=== PATIENT | female | born 1990 | race Two or more races ===

== ENCOUNTER 2023-02-26 05:26 | Emergency (ER) | payer MEDICAID ==
[~2023-02-26] VITALS: Ht 167.6 cm; Wt 72.4 kg
[2023-02-26 05:46] VITALS: BP 118/77; PULSE 64; RESP 15; O2SAT 100
[2023-02-26 07:02] LABS: Urine Bacteria NONE SEEN /hpf (None Seen); Urine Blood 2+ /uL (Negative); Urine Clarity Clear (Clear); Urine Color Yellow (Yellow); Urine Protein, UAD Negative (Negative); Urine Specific Gravity 1.024 (1.001-1.035); Urine Urobilinogen Normal (Negative); Urine WBC 1 /hpf (0 - 5)
[2023-02-26 07:11] LABS: Alanine Aminotransferase 26 U/L (7-40); Albumin 4.4 g/dL (3.2-4.8); Alkaline Phosphatase 51 U/L (46-116); Anion Gap 6 (5-15); Aspartate Aminotransferase 17 U/L (13-40); BUN/Creatinine Ratio 19.5 (10.0-20.0); Blood Urea Nitrogen 15 mg/dL (9-23); Calcium 8.9 mg/dL (8.5-10.1); Carbon Dioxide 25 mmol/L (20-30); Chloride 106 mmol/L (98-107); Glucose 88 mg/dL (74-106); Sodium 137 mmol/L (136-145)
[2023-02-26 07:12] LABS: Bilirubin, Total 0.4 mg/dL (0.2-1.0); Total Protein 7.3 g/dL (5.7-8.2)
[2023-02-26 07:13] LABS: Basophils # (auto) 0 10 ^3/uL (0-0.2); Basophils % (auto) 0.9 % (0.0-2.0); Eosinophils # (auto) 0.1 10 ^3/uL (0-0.8); Hematocrit 35.9 % (36.0-46.0); Hemoglobin 12.4 g/dL (12.2-16.2); Lymphocytes # (auto) 1.2 10 ^3/uL (0.4-5.4); Mean Corpuscular Hemoglobin 31.5 pg (28.0-32.0); Mean Corpuscular Hgb Conc. 34.4 g/dL (32.0-36.0); Mean Corpuscular Volume 91.5 fL (80.0-100.0); Monocytes # (auto) 0.4 10 ^3/uL (0-1.3); Monocytes % (auto) 8.9 % (0.0-12.0); Neutrophils # (auto) 2.6 10 ^3/uL (1.6-8.6); Neutrophils % (auto) 61.2 % (37.0-80.0); Nucleated Red Blood Cells % 0.2 %; Red Blood Cells 3.92 10^6/uL (4.0-5.20); Red Cell Distribution Width 12.4 % (11.8-14.3); White Blood Cell 4.3 10^3/uL (4.4-10.8)
[2023-02-26] MEDS ORDERED: FOLIC ACID 1 MG TAB PO ONE (07:45)
== END 2023-02-26 14:47 | disposition left against medical advice (07) ==
LOC: ER 05:26
DX: O20.9 Hemorrhage in early pregnancy, unspecified (principal); R10.2 Pelvic and perineal pain; Z3A.01 Less than 8 weeks gestation of pregnancy; Z88.0 Allergy status to penicillin; Z88.2 Allergy status to sulfonamides
CPT/HCPCS: 36415; 76801; 76817; 80053; 81001; 84702; 85025

== ENCOUNTER → 2023-03-22 | Outpatient (CLI) | payer MEDICAID | END | disposition home or self-care (01) | LOC: LAB 09:41 | PROVIDERS: ATTEND Obstetrics & Gynecology | DX: Z34.80 Encounter for supervision of other normal pregnancy, unspecified trimester (principal); R79.89 Other specified abnormal findings of blood chemistry; Z3A.00 Weeks of gestation of pregnancy not specified | CPT/HCPCS: 36415; 81025; 84702 ==

== ENCOUNTER → 2023-03-30 | Outpatient (CLI) | payer MEDICAID | END | disposition home or self-care (01) | LOC: LAB 11:17 | PROVIDERS: ATTEND Obstetrics & Gynecology | DX: Z34.80 Encounter for supervision of other normal pregnancy, unspecified trimester (principal); Z3A.00 Weeks of gestation of pregnancy not specified | CPT/HCPCS: 36415; 81025; 84702 ==

== ENCOUNTER → 2023-04-05 | Outpatient (CLI) | payer MEDICAID | END | disposition home or self-care (01) | LOC: LAB 08:23 | PROVIDERS: ATTEND Obstetrics & Gynecology | DX: Z34.80 Encounter for supervision of other normal pregnancy, unspecified trimester (principal); Z3A.00 Weeks of gestation of pregnancy not specified | CPT/HCPCS: 36415; 81025; 84702 ==

== ENCOUNTER → 2023-04-12 | Outpatient (CLI) | payer MEDICAID | END | disposition home or self-care (01) | LOC: LAB 12:07 | PROVIDERS: ATTEND Obstetrics & Gynecology | DX: Z34.80 Encounter for supervision of other normal pregnancy, unspecified trimester (principal); Z3A.00 Weeks of gestation of pregnancy not specified | CPT/HCPCS: 36415; 81025; 84702 ==

== ENCOUNTER 2023-04-15 12:19 | Emergency (ER) | payer MEDICAID ==
[~2023-04-15] VITALS: Ht 170.2 cm; Wt 73.9 kg
[2023-04-15 13:16] LABS: Basophils # (auto) 0 10 ^3/uL (0-0.2); Eosinophils # (auto) 0.1 10 ^3/uL (0-0.8); Eosinophils % (auto) 1.9 % (0.0-7.0); Hematocrit 36.9 % (36.0-46.0); Hemoglobin 12.7 g/dL (12.2-16.2); Lymphocytes # (auto) 1.9 10 ^3/uL (0.4-5.4); Lymphocytes % (auto) 38.5 % (10.0-50.0); Mean Corpuscular Hemoglobin 31.4 pg (28.0-32.0); Mean Corpuscular Hgb Conc. 34.5 g/dL (32.0-36.0); Mean Corpuscular Volume 90.9 fL (80.0-100.0); Monocytes # (auto) 0.3 10 ^3/uL (0-1.3); Monocytes % (auto) 5.2 % (0.0-12.0); Neutrophils # (auto) 2.6 10 ^3/uL (1.6-8.6); Neutrophils % (auto) 53.4 % (37.0-80.0); Red Blood Cells 4.06 10^6/uL (4.0-5.20); Red Cell Distribution Width 12.7 % (11.8-14.3); White Blood Cell 4.9 10^3/uL (4.4-10.8)
[2023-04-15 13:34] LABS: INR 1.09 (0.9-1.15); Prothrombin Time 11.4 sec (9.3-11.8)
[2023-04-15 13:43] LABS: Alanine Aminotransferase 19 U/L (7-40); Albumin 4.5 g/dL (3.2-4.8); Alkaline Phosphatase 49 U/L (46-116); Anion Gap 5 (5-15); Aspartate Aminotransferase 14 U/L (13-40); BUN/Creatinine Ratio 19.8 (10.0-20.0); Bilirubin, Total 0.7 mg/dL (0.2-1.0); Blood Urea Nitrogen 16 mg/dL (9-23); Calcium 9.7 mg/dL (8.5-10.1); Carbon Dioxide 29 mmol/L (20-30); Chloride 105 mmol/L (98-107); Glucose 91 mg/dL (74-106); Potassium 4.3 mmol/L (3.5-5.1); Sodium 139 mmol/L (136-145); Total Protein 7.2 g/dL (5.7-8.2)
[2023-04-15 14:50] LABS: Urine Bacteria NONE SEEN /hpf (None Seen); Urine Blood Negative /uL (Negative); Urine Clarity Clear (Clear); Urine Protein, UAD Negative (Negative); Urine Specific Gravity 1.011 (1.001-1.035); Urine Urobilinogen Normal (Negative); Urine WBC 1 /hpf (0 - 5)
[2023-04-15 14:51] LABS: Urine Color Yellow (Yellow)
[2023-04-15 17:56] VITALS: BP 113/72; PULSE 62; RESP 18; TEMP 97.7; O2SAT 98
== END 2023-04-15 17:57 | disposition home or self-care (01) ==
LOC: ER 12:19
DX: O00.90 Unspecified ectopic pregnancy without intrauterine pregnancy (principal); Z88.0 Allergy status to penicillin; Z88.2 Allergy status to sulfonamides; Z88.8 Allergy status to other drugs, medicaments and biological substances; Z3A.12 12 weeks gestation of pregnancy
CPT/HCPCS: 36415; 76830; 76856; 80053; 81001; 84702; 85025; 85610; 86850; 86900; 86901